=== PATIENT | female | born 1985 | race African-American/Black ===

== ENCOUNTER 2023-09-10 00:52 | Emergency (ER) | payer BC, MEDICAID ==
[~2023-09-10] VITALS: Ht 162.6 cm; Wt 58.0 kg
[2023-09-10 00:54] VITALS: O2SAT 99
[2023-09-10] MEDS: DEXAMETHASONE 10 MG/ML VIAL IV ONE (01:19)
[2023-09-10] MEDS: FAMOTIDINE 20MG/2ML VIAL IV ONE (01:19)
[2023-09-10] MEDS: DIPHENHYDRAMINE 50MG/ML VIAL IV ONE (01:19)
[2023-09-10 01:22] LABS: BASOPHILS % 0.5 % (0.0-2.0); DIFFERENTIAL COMMENT 0; EOSINOPHILS % 1.9 % (0.0-5.0); HEMOGLOBIN. 11.2 g/dL (12.0-16.0); LYMPHOCYTES % 51.2 % (20.0-50.0); MEAN CORPUSCULAR HEMOGLOBIN 23.3 pg (28.0-32.0); MEAN CORPUSCULAR VOLUME 72.9 fL (81.0-99.0); MONOCYTES % 11.9 % (2.0-8.0); NEUTROPHILS % 34.5 % (40.0-76.0); PLATELET 258 x1000/uL (130-400); RED BLOOD CELL COUNT 4.79 mill/uL (4.2-5.4); RED CELL DISTRIBUTION WIDTH 15.1 % (11.6-14.6); WHITE BLOOD COUNT 4.8 x1000/uL (4.5-11.0)
[2023-09-10 01:31] LABS: CHLORIDE 107 mEq/L (98-107); POTASSIUM 3.4 mEq/L (3.5-5.1); SODIUM 140 mEq/L (136-145)
[2023-09-10 01:32] LABS: CALCIUM 9.5 mg/dL (8.7-10.4); CARBON DIOXIDE 26 mEq/L (21-32)
[2023-09-10 01:37] LABS: CREATININE 0.9 mg/dL (0.6-1.0); GLUCOSE 92 mg/dL (70-105); UREA NITROGEN BLOOD 19 mg/dL (9-23)
[2023-09-10] MEDS ORDERED: EPIN0.3P3 IM (04:35)
[2023-09-10 05:06] VITALS: BP 98/85; PULSE 54; RESP 20; TEMP 98
== END 2023-09-10 05:10 | disposition home or self-care (01) ==
LOC: ER 00:52
DX: T78.3XXA Angioneurotic edema, initial encounter (principal)
CPT/HCPCS: 99291; 96374; 96375; 80048; 85025; 36415; J1100; J1200; J3490; 99284

== ENCOUNTER 2023-10-22 23:52 | Emergency (ER) | payer BC ==
[~2023-10-22] VITALS: Ht 162.6 cm; Wt 62.0 kg
[~2023-10-22 23:52] MED LIST: EPIN0.3P3 IM
[2023-10-22 23:54] VITALS: O2SAT 100
[2023-10-23] MEDS: METHYLPREDNISOLONE SOD SUCC 125MG/2ML (ACT-O-VIAL) IV ONE (02:35)
[2023-10-23] MEDS: FAMOTIDINE 20MG/2ML VIAL IV ONE (02:35)
[2023-10-23] MEDS: METHYLPREDNISOLONE SOD SUCC 125MG/2ML (ACT-O-VIAL) IV NR (03:52)
[2023-10-23 03:53] VITALS: TEMP 97.9
[2023-10-23] MEDS: FAMOTIDINE 20MG/2ML VIAL IV NR (03:53)
[2023-10-23] MEDS ORDERED: P20 MT (03:54)
[2023-10-23] MEDS ORDERED: EPIN0.3P3 IM (03:54)
[2023-10-23] MEDS ORDERED: FAMO-134 MT (03:54)
[2023-10-23 04:24] VITALS: BP 124/88; PULSE 86; RESP 18
== END 2023-10-23 04:23 | disposition home or self-care (01) ==
LOC: ER 10-23 00:06
DX: T78.3XXA Angioneurotic edema, initial encounter (principal)
CPT/HCPCS: 96374; 96375; 99285; J3490; J2919; Z7610 ×5